=== PATIENT | male | born 1940 | race African-American/Black ===

== ENCOUNTER 2016-12-20 11:32 | Outpatient (CLI) ==
[2016-12-20 13:38] LABS: BASOPHILS # (AUTO) 0.1 K/uL (0-0.2); EOSINOPHILS # (AUTO) 0.2 K/ul (0.0-0.7); EOSINOPHILS % (AUTO) 2.1 % (0.0-7.0); HEMATOCRIT 46.1 % (42.0-52.0); HEMOGLOBIN 14.4 g/dl (14.0-18.0); IMMATURE GRANULOCYTE % (AUTO) 0.1 % (0.0-5.0); LYMPHOCYTES # (AUTO) 2.4 K/uL (0.60-3.4); LYMPHOCYTES % (AUTO) 34.7 (10.0-50.0); MEAN CORPUSCULAR HGB CONC 31.2 (31.8-35.4); MEAN CORPUSCULAR VOLUME 92.8 fl (80.0-94.0); MONOCYTES # (AUTO) 0.6 K/uL (0.4-2.0); MONOCYTES % (AUTO) 8.8 (0-10); NEUTROPHILS # (AUTO) 3.7 K/ul (2.0-6.9); NEUTROPHILS % (AUTO) 53.3; PLATELET COUNT 179 10^3/uL (140-440); RED BLOOD COUNT 4.97 10^6/ul (4.70-6.10); WHITE BLOOD COUNT 7.03 K/ul (4.2-10.2)
[2016-12-20 13:40] LABS: BILIRUBIN,URINE Negative (NEGATIVE); KETONES,URINE Negative (NEGATIVE); LEUKOCYTE ESTERASE ,URINE Negative (NEGATIVE); NITRITE,URINE Negative (NEGATIVE); PH,URINE 6.5 (5-9); PROTEIN,URINE 2+ (NEGATIVE); URINE, BLOOD Trace-lysed (NEGATIVE)
[2016-12-20 13:50] LABS: ADD URINE MICROSCOPIC YES
[2016-12-20 14:05] LABS: ALBUMIN 3.4 g/dL (3.4-5.0); ALBUMIN/GLOBULIN RATIO 0.81; BILIRUBIN,TOTAL 0.48 mg/dL (0.00-1.20); BUN/CREATININE RATIO 24.15; CALCIUM 9.4 mg/dL (8.2-10.2); CHOL/HDL RATIO 3.4 (4.5-6.4); CREATININE 1.78 mg/dL (0.60-1.10); TOTAL PROTEIN 7.6 g/dL (5.8-8.1)
== END 2016-12-20 11:33 | disposition home or self-care (01) ==
LOC: LAB 11:32
PROVIDERS: ATTEND General Practice
DX: I50.9 Heart failure, unspecified (principal); E10.9 Type 1 diabetes mellitus without complications; E78.5 Hyperlipidemia, unspecified; E03.9 Hypothyroidism, unspecified; I10 Essential (primary) hypertension; Z79.899 Other long term (current) drug therapy
CPT/HCPCS: 36415; 80053; 80061; 81001; 83036; 85025

== ENCOUNTER 2016-12-27 10:06 | Outpatient (CLI) ==
[2016-12-29 07:15] LABS: C-PEPTIDE 2.1 ng/mL (1.1-4.4); INSULIN 16.6 uIU/mL (2.6-24.9)
[2016-12-30 07:10] LABS: GAD AUTOANTIBODY < 5.0 U/mL (0.0-5.0)
== END 2016-12-27 10:07 | disposition home or self-care (01) ==
LOC: LAB 10:06
PROVIDERS: ATTEND General Practice
DX: E10.9 Type 1 diabetes mellitus without complications (principal)
CPT/HCPCS: 36415; 83519; 83525; 84681

== ENCOUNTER 2016-12-31 11:13 | Inpatient (IN) | payer OTHER ==
[2016-12-31 12:19] VITALS: BMI 37.6
[2016-12-31 14:08] LABS: BILIRUBIN,URINE Negative (NEGATIVE); KETONES,URINE Negative (NEGATIVE); LEUKOCYTE ESTERASE ,URINE Negative (NEGATIVE); NITRITE,URINE Negative (NEGATIVE); PROTEIN,URINE 2+ (NEGATIVE); URINE, BLOOD 1+ (NEGATIVE)
[2016-12-31 14:12] LABS: ADD URINE MICROSCOPIC YES
[2016-12-31 14:17] LABS: BASOPHILS # (AUTO) 0.1 K/uL (0-0.2); BASOPHILS % (AUTO) 0.9 % (0.0-3.0); EOSINOPHILS # (AUTO) 0.2 K/ul (0.0-0.7); EOSINOPHILS % (AUTO) 2.9 % (0.0-7.0); HEMATOCRIT 43.8 % (42.0-52.0); HEMOGLOBIN 13.5 g/dl (14.0-18.0); IMMATURE GRANULOCYTE % (AUTO) 0.2 % (0.0-5.0); LYMPHOCYTES # (AUTO) 1.6 K/uL (0.60-3.4); MEAN CORPUSCULAR HEMOGLOBIN 28.8 pg (27.0-31.0); MEAN CORPUSCULAR HGB CONC 30.8 (31.8-35.4); MEAN CORPUSCULAR VOLUME 93.6 fl (80.0-94.0); MONOCYTES # (AUTO) 0.9 K/uL (0.4-2.0); MONOCYTES % (AUTO) 15.2 (0-10); NEUTROPHILS # (AUTO) 3.1 K/ul (2.0-6.9); NEUTROPHILS % (AUTO) 53.8; PLATELET COUNT 130 10^3/uL (140-440); RED BLOOD COUNT 4.68 10^6/ul (4.70-6.10); WHITE BLOOD COUNT 5.78 K/ul (4.2-10.2)
[2016-12-31] MEDS ORDERED: COLACE PO PRN (14:22)
[2016-12-31 14:26] LABS: PROTHROMBIN TIME 17.7 SEC (9.3-11.0)
[2016-12-31 14:29] LABS: ABG PH 7.362 (7.35-7.45)
[2016-12-31 14:30] LABS: ABG PCO2 63.1 mmHg (35-45)
[2016-12-31] MEDS ORDERED: NITROSTAT SL PRN (14:30)
[2016-12-31 14:31] LABS: ABG BASE EXCESS 10 (-2.0-2.0); ABG HCO3 35.9 (22.0-26.0); ABG TCO2 38 (22.0-28.0)
[2016-12-31 14:45] LABS: ALBUMIN 3.2 g/dL (3.4-5.0); ALBUMIN/GLOBULIN RATIO 0.78; ANION GAP 11.4; BILIRUBIN,TOTAL 0.44 mg/dL (0.00-1.20); BUN/CREATININE RATIO 23.2; CALCIUM 8.9 mg/dL (8.2-10.2); CREATININE 1.81 mg/dL (0.60-1.10); POTASSIUM 4.4 mmol/L (3.5-5.1); TOTAL PROTEIN 7.3 g/dL (5.8-8.1)
[2016-12-31] MEDS ORDERED: XOPENEX 0.63 MG NEB STA (15:20)
--- NOTE | 2016-12-31 15:31 | DI ---
EXAM: CHEST FRONTAL AND LATERAL VIEWS HISTORY: Cough, shortness of breath. COMPARISON: 08/27/2015 FINDINGS: Mild cardiomegaly is stable. There is at least mild aortic atherosclerosis. Sternotomy wires are again noted. Left port catheter is unchanged ending over the superior vena cava. No cons olidated pneumonia, active congestive heart failure, pneumothorax or visible pleural fluid. IMPRESSION: No definite acute cardiopulmonary process identified.
[2016-12-31] MEDS: SOLU-CORTEF 250 MG IVP SCH ×2 (16:34→21:22)
[2016-12-31] MEDS: ASPIRIN EC PO SCH (16:35)
[2016-12-31] MEDS: BUMEX PO SCH (16:35)
[2016-12-31] MEDS: COUMADIN PO SCH (16:35)
[2016-12-31] MEDS: POTASSIUM CHLORIDE 20 MEQ VIAL-ADDITIVE ONLY 20 MEQ, INFUVITE ADULT 10 ML in SODIUM CHL... IV SCH (16:35)
[2016-12-31] MEDS ORDERED: HUMULIN R SUBCUT PRN (17:41)
[2016-12-31] MEDS: COMBIVENT RESPIMAT INHAL SPRAY IH SCH (18:49)
[2016-12-31] MEDS ORDERED: IPRATROPIUM IH SCH (21:00)
[2016-12-31] MEDS ORDERED: ALBUTEROL SULFATE IH SCH (21:00)
[2016-12-31] MEDS ORDERED: COMBIVENT RESPIMAT INHAL SPRAY IH SCH (21:00)
[2016-12-31] MEDS ORDERED: BETAPACE PO SCH (21:00)
[2016-12-31] MEDS ORDERED: [UNRECOGNIZED DRUG - OTHER] IH SCH (21:00)
[2016-12-31] MEDS: LANTUS SUBCUT SCH (21:34)
[2017-01-01] MEDS: POTASSIUM CHLORIDE 20 MEQ VIAL-ADDITIVE ONLY 20 MEQ, INFUVITE ADULT 10 ML in SODIUM CHL... IV SCH (04:22)
[2017-01-01] MEDS: BUMEX PO SCH ×2 (06:02→16:27)
[2017-01-01] MEDS: SYNTHROID PO SCH (06:02)
[2017-01-01] MEDS: COMBIVENT RESPIMAT INHAL SPRAY IH SCH ×4 (06:20→18:02)
[2017-01-01 07:22] LABS: BASOPHILS % (AUTO) 0.2 % (0.0-3.0); HEMOGLOBIN 13.6 g/dl (14.0-18.0); IMMATURE GRANULOCYTE % (AUTO) 0.2 % (0.0-5.0); LYMPHOCYTES % (AUTO) 19.6 (10.0-50.0); MEAN CORPUSCULAR HEMOGLOBIN 28.2 pg (27.0-31.0); MEAN CORPUSCULAR HGB CONC 30.9 (31.8-35.4); MEAN CORPUSCULAR VOLUME 91.3 fl (80.0-94.0); MONOCYTES # (AUTO) 0.3 K/uL (0.4-2.0); NEUTROPHILS # (AUTO) 3.9 K/ul (2.0-6.9); PLATELET COUNT 144 10^3/uL (140-440); RED BLOOD COUNT 4.82 10^6/ul (4.70-6.10); WHITE BLOOD COUNT 5.15 K/ul (4.2-10.2)
[2017-01-01 07:47] LABS: ALBUMIN/GLOBULIN RATIO 0.67; ANION GAP 11.9; BILIRUBIN,TOTAL 0.38 mg/dL (0.00-1.20); BUN/CREATININE RATIO 27.95; CALCIUM 8.6 mg/dL (8.2-10.2); CREATININE 1.61 mg/dL (0.60-1.10); POTASSIUM 4.9 mmol/L (3.5-5.1); TOTAL PROTEIN 7.5 g/dL (5.8-8.1)
[2017-01-01] MEDS: BETAPACE PO SCH ×2 (09:01→20:42)
[2017-01-01] MEDS: PRAVACHOL PO SCH (09:02)
[2017-01-01] MEDS: COZAAR PO SCH (09:02)
[2017-01-01] MEDS: ZYLOPRIM PO SCH (09:02)
--- NOTE | 2017-01-01 10:21 | CT ---
Exam: CT of the chest without contrast History: Shortness of breath Technique: [address] of the chest without intravascular contrast FINDINGS: Lung windows show bilateral patchy consolidative opacities multilobar. Nodular area in t he right lung base measures 1.8 x 1.0 cm. No pleural fluid. Atherosclerotic calcification of the a rom and coronary arteries. Possible cardiomegaly and heart chamber dilation. No pathologic lymph node enlargement. Prior median sternotomy. Right chest wall Port-A-Cath. No acute findings of the upper abdomen. Impression: 1. Bilateral consolidative opacities favoring pneumonia. 2. Indeterminate nodule versus round consolidation of the right lower lobe. Follow-up recommended after treatment and convalescence.
[2017-01-01] MEDS: SOLU-CORTEF 250 MG IVP SCH ×2 (10:41→20:42)
[2017-01-01] MEDS: HUMULIN R SUBCUT PRN ×2 (11:11→17:13)
[2017-01-01] MEDS: ZYVOX 600 MG in PREMIX 300 ML WATER 1 BAG IV SCH ×2 (11:42→20:40)
[2017-01-01] MEDS: COUMADIN PO SCH (16:27)
[2017-01-01] MEDS: ASPIRIN EC PO SCH (16:29)
[2017-01-01] MEDS ORDERED: ZYVOX 600 MG/300 ML BAG IV ONE (20:24)
[2017-01-01] MEDS: LANTUS SUBCUT SCH (20:41)
[2017-01-02] MEDS: COMBIVENT RESPIMAT INHAL SPRAY IH SCH ×4 (00:44→17:32)
[2017-01-02 05:03] LABS: PROTHROMBIN TIME 17.3 SEC (9.3-11.0)
[2017-01-02 05:33] LABS: EOSINOPHILS % (AUTO) 0.1 % (0.0-7.0); HEMATOCRIT 42.8 % (42.0-52.0); HEMOGLOBIN 13.6 g/dl (14.0-18.0); IMMATURE GRANULOCYTE % (AUTO) 0.3 % (0.0-5.0); LYMPHOCYTES # (AUTO) 1.3 K/uL (0.60-3.4); LYMPHOCYTES % (AUTO) 11.6 (10.0-50.0); MEAN CORPUSCULAR HGB CONC 31.8 (31.8-35.4); MEAN CORPUSCULAR VOLUME 91.3 fl (80.0-94.0); MONOCYTES # (AUTO) 0.6 K/uL (0.4-2.0); MONOCYTES % (AUTO) 5.4 (0-10); NEUTROPHILS % (AUTO) 82.6; PLATELET COUNT 148 10^3/uL (140-440); RED BLOOD COUNT 4.69 10^6/ul (4.70-6.10)
[2017-01-02 05:35] LABS: WHITE BLOOD COUNT 10.87 K/ul (4.2-10.2)
[2017-01-02 05:38] LABS: ALBUMIN 2.9 g/dL (3.4-5.0); ALBUMIN/GLOBULIN RATIO 0.76; ANION GAP 11.5; BILIRUBIN,TOTAL 0.32 mg/dL (0.00-1.20); BUN/CREATININE RATIO 29.21; CALCIUM 8.9 mg/dL (8.2-10.2); CREATININE 1.78 mg/dL (0.60-1.10); POTASSIUM 4.5 mmol/L (3.5-5.1); TOTAL PROTEIN 6.7 g/dL (5.8-8.1)
[2017-01-02] MEDS: SYNTHROID PO SCH (06:23)
[2017-01-02] MEDS: HUMULIN R SUBCUT PRN ×3 (06:23→17:18)
[2017-01-02] MEDS: BUMEX PO SCH ×2 (06:23→17:18)
[2017-01-02] MEDS: BETAPACE PO SCH ×2 (08:10→20:56)
[2017-01-02] MEDS: PRAVACHOL PO SCH (08:12)
[2017-01-02] MEDS: COZAAR PO SCH (08:12)
[2017-01-02] MEDS: SOLU-CORTEF 250 MG IVP SCH (08:13)
[2017-01-02] MEDS: ZYLOPRIM PO SCH (08:13)
[2017-01-02] MEDS: ZYVOX 600 MG in PREMIX 300 ML WATER 1 BAG IV SCH ×2 (09:08→21:03)
[2017-01-02] MEDS: ASPIRIN EC PO SCH (17:18)
[2017-01-02] MEDS: COUMADIN PO SCH (17:18)
[2017-01-02] MEDS: LANTUS SUBCUT SCH (20:55)
[2017-01-02] MEDS ORDERED: ZYVOX 600 MG/300 ML BAG IV ONE (21:02)
[2017-01-03] MEDS: COMBIVENT RESPIMAT INHAL SPRAY IH SCH ×5 (01:02→23:59)
[2017-01-03 04:57] LABS: BASOPHILS % (AUTO) 0.1 % (0.0-3.0); HEMATOCRIT 41.7 % (42.0-52.0); HEMOGLOBIN 13.1 g/dl (14.0-18.0); IMMATURE GRANULOCYTE % (AUTO) 0.3 % (0.0-5.0); LYMPHOCYTES # (AUTO) 2.3 K/uL (0.60-3.4); LYMPHOCYTES % (AUTO) 17.7 (10.0-50.0); MEAN CORPUSCULAR HEMOGLOBIN 28.7 pg (27.0-31.0); MEAN CORPUSCULAR HGB CONC 31.4 (31.8-35.4); MEAN CORPUSCULAR VOLUME 91.2 fl (80.0-94.0); MONOCYTES # (AUTO) 0.9 K/uL (0.4-2.0); MONOCYTES % (AUTO) 6.7 (0-10); NEUTROPHILS # (AUTO) 9.7 K/ul (2.0-6.9); NEUTROPHILS % (AUTO) 75.2; PLATELET COUNT 149 10^3/uL (140-440); RED BLOOD COUNT 4.57 10^6/ul (4.70-6.10); WHITE BLOOD COUNT 12.85 K/ul (4.2-10.2)
[2017-01-03 05:10] LABS: PROTHROMBIN TIME 24.6 SEC (9.3-11.0)
[2017-01-03 05:18] LABS: ALBUMIN 2.8 g/dL (3.4-5.0); ALBUMIN/GLOBULIN RATIO 0.8; ANION GAP 12.1; BILIRUBIN,TOTAL 0.33 mg/dL (0.00-1.20); BUN/CREATININE RATIO 36.91; CALCIUM 8.7 mg/dL (8.2-10.2); CREATININE 1.49 mg/dL (0.60-1.10); POTASSIUM 4.1 mmol/L (3.5-5.1); TOTAL PROTEIN 6.3 g/dL (5.8-8.1)
[2017-01-03] MEDS: BUMEX PO SCH ×2 (05:39→16:43)
[2017-01-03] MEDS: SYNTHROID PO SCH (05:39)
[2017-01-03] MEDS: HUMULIN R SUBCUT PRN ×3 (06:19→17:39)
[2017-01-03] MEDS: ZYVOX 600 MG in PREMIX 300 ML WATER 1 BAG IV SCH ×2 (08:00→21:08)
[2017-01-03] MEDS: COZAAR PO SCH (08:00)
[2017-01-03] MEDS: PRAVACHOL PO SCH (08:01)
[2017-01-03] MEDS: BETAPACE PO SCH ×2 (08:01→21:17)
[2017-01-03] MEDS: ZYLOPRIM PO SCH (08:02)
[2017-01-03] MEDS ORDERED: DRISDOL PO SCH (09:00)
[2017-01-03] MEDS ORDERED: MUCINEX PO SCH (09:30)
--- NOTE | 2017-01-03 09:31 | ECHO2D ---
Date of Exam: 01/01/17 Ordering Physician: Charlene PAUL Reason for Echo: ELEVATED BLOOD PRESSURE, CARDIOMEGALY, CHF M-Mode Normal Adult Results LV Dimensions Normal Adult Results AoV Opening excursions >1.6 >1.6 LVEDD-base- 3.5-5.8 6.0 Ao root dimensions 2.0-3.7 4.0 LVESD-base- 3.1-4.6 L. Atrium dimensions 1.9-3.8 4.7 Post. Wall thickness 0.8-1.1 1.5 IV septum (thickness) 0.7-1.2 1.5 Post. Wall excursion 0.72-1.3 0.4 Septal motion 0.4 Systolic motion R. Ventricular cavity 1.5-2.0 NORMAL LVEF 60% 30% Paradoxical septal wall motion NORMAL 2-D : VALVES--NORMAL/HYPOKINETIC LEFT VENTRICLE, ENLARGED LEFT ATRIAL AND LEFT VENTRICLE CAVITIES, NO EFFUSION, NO THROMBUS M-MODE: MV: NORMAL AV: NORMAL TV: NORMAL PV: CHAMBER SIZE: ENLARGED LEFT ATRIAL AND LEFT VENTRICLE CAVITIES WALL MOTION: HYPOKINETIC LEFT VENTRICLE PERICARDIUM: NORMAL INTERPRETATION: 1. MODERATE LEFT VENTRICULAR HYPERTROPHY 2. ENLARGED LEFT ATRIAL AND LEFT VENTRICLE CAVITIES 3. DILATED AORTIC ROOT 4. HYPOKINETIC LEFT VENTRICLE WITH EJECTION FRACTION 30% MTDD
[2017-01-03] MEDS: MUCINEX PO SCH ×2 (09:34→21:17)
--- NOTE | 2017-01-03 13:07 | HP ---
CHIEF COMPLAINT: Muscular aches, not feeling well, cough and shortness of breath. SOURCE OF HISTORY: The patient HISTORY OF PRESENT ILLNESS: This patient is know to have chronic obstructive lung disease with home oxygen. He noted last Tuesday, 5 days to presentation to the office that he was experiencing generalized muscular aches with cough. Achy and coughing persisted with increasing weakness and increasing shortness of breath. The patient did not have any significant temperature rise. The patient at time of examination at the office was noted to be tachypneic in spite of the 2 liters of oxygen. He also has wheezing in both lung blanco anteriorly and posteriorly. Breath are markedly diminished. Heart is normal sinus rhythm. The patient was then advised admission to the hospital because of the increasing shortness of breath. PAST PERSONAL HISTORY: The patient had cataract removal, two open heart surgeries in 2011 and 5 coronary stents, umbilical hernia repair, congenital kidney defect. Penile implant, benign prostatic hypertrophy, left knee replacement 2008, was exposed smoking when he was a child but never did smoke, denies any alcoholic use. The patient has lymphoma and was given chemotherapy in 2004. He is being followed by a urologist Dr. López. He had a colonoscopy with Dr. Braxton. He had admitted to [facility] [place] two times recently probably from increasing shortness of breath. I will try to obtain those records. FAMILY HISTORY: Father had emphysema Mother had bone cancer as well as diabetes. SOCIAL HISTORY: The patient is for the second time, his previous several years ago. He does not smoke any cigarettes and no alcoholic beverages. MEDICATIONS: Warfarin 5mg PO daily Aspirin 81mg PO daily Levothyroxine 100mcg daily Allopurinol 100mg PO daily Colace 100mg twice a day Bumex 1mg tablet twice a day Combivent Respimat one inhalation twice a day Losartan 50mg daily Sotalol 40mg PO twice a day Nitroglycerin 0.4mg PRN sublingually Insulin Isophane 44 unit SUBCUT daily Human Insulin Isophane Novolin N 33 units at bedtime Vitamin D 50,000 units weekly ALLERGIES: Keflex Potassium Chloride Cipro REVIEW OF SYSTEMS: CONSTITUTIONAL: The patient has no fever or chills but fatigue. No feeling well. FURNITURE PACKER: No headaches. No ataxia, No loss of consciousness. VISUAL: Denies any blurred vision, double or loss of vision. AUDITORY: Hearing is decreased but no pain or drainage and no tinnitus. RESPIRATORY: The patient has cough and some what purulent sputum, persistent and increasing. No hemoptysis CARDIOVASCULAR: No chest pain or oppression GASTROINTESTINAL: No significant appetite changes. GENITOURINARY: Denies any pain on urination and no significant urgency INTEGUMENT: No rash or pleuritis ENDOCRINE: The patient is diabetic and is using insulin NPH. Testing with the diabetes showed the plasma C-Peptid Level within normal, BHARATHI 65 autoantibody is negative and the insulin is 16. The insulin had been discontinued prior to this testing. It was felt like this patient still is type 2 diabetes and weight reduction is needed and maybe this patient will be tried on Trulicity later on after this acute episode or increasing shortness of breath. HEMATOLOGIC: No history of prolonged bleeding. The patient is on Coumadin PSYCHIATRIC: Affect is normal. PHYSICAL EXAMINATION: GENERAL: The patient is an 78 year old black male admitted to the hospital because of increasing shortness of breath with cough and muscular aches. VITAL SIGNS: Temperature 98.6, pulse 58, blood pressure 122/80 left and 120/78 right, respiratory rate 16 and oxygen saturation 90 at 2 liters. 5'9" and 255 pounds. HEAD: Unremarkable FACE: Symmetrical and equal with no facial weakness. Palpation under pressure in the frontal maxillary sinus areas revealed no pain or tenderness. EYES: Pupils equal/reactive to light. About 3mm in size. Conjunctivae not pale. Sclerae not icteric. MOUTH: Unremarkable THROAT: No inflammation, tumors or exudate. NECK: No masses. No bruit. No tenderness. No rigidity. CHEST: Symmetrical and equal with acceptable expansion with scar median sternotomy LUNGS: Breaths sounds are markedly diminished and has expiratory and inspiratory wheezing. No descendible rales noted. The wheezing is also appreciated interiorly. HEART: Audible and regular with good tones. No murmurs. ABDOMEN: Protuberant . No remarkable tenderness. No guarding. Bowel sounds are active. LOWER EXTREMITIES: The patient is using support hose. The limits the swelling UPPER EXTREMITIES: Symmetrical and equal ASSESSMENT: 1. Acute exacerbation of acute bronchitis 2. Probably viral syndrome 3. Exacerbation of respiratory failure 4. Coronary artery disease, status post bypass 5. Coronary artery disease, status post stent application x5 6. Markedly elevated BMI, 37.7 7. Diabetes Mellitus probably 1.5 8. Erectile dysfunction with prosthesis 9. History of prostatic hypertrophy followed by a urologist Dr. López 10.History of lymphoma, treated PROGNOSIS: Guarded. MTDD
[2017-01-03] MEDS: ASPIRIN EC PO SCH (16:43)
[2017-01-03] MEDS: COUMADIN PO SCH (16:44)
[2017-01-03] MEDS: LANTUS SUBCUT SCH (21:19)
[2017-01-04 05:14] LABS: BASOPHILS % (AUTO) 0.2 % (0.0-3.0); EOSINOPHILS # (AUTO) 0.1 K/ul (0.0-0.7); EOSINOPHILS % (AUTO) 0.9 % (0.0-7.0); HEMATOCRIT 45.9 % (42.0-52.0); HEMOGLOBIN 14.3 g/dl (14.0-18.0); IMMATURE GRANULOCYTE % (AUTO) 0.3 % (0.0-5.0); LYMPHOCYTES # (AUTO) 3.4 K/uL (0.60-3.4); LYMPHOCYTES % (AUTO) 37.5 (10.0-50.0); MEAN CORPUSCULAR HEMOGLOBIN 28.7 pg (27.0-31.0); MEAN CORPUSCULAR HGB CONC 31.2 (31.8-35.4); MONOCYTES # (AUTO) 0.7 K/uL (0.4-2.0); MONOCYTES % (AUTO) 7.5 (0-10); NEUTROPHILS # (AUTO) 4.8 K/ul (2.0-6.9); NEUTROPHILS % (AUTO) 53.6; PLATELET COUNT 162 10^3/uL (140-440); RED BLOOD COUNT 4.99 10^6/ul (4.70-6.10); WHITE BLOOD COUNT 9.04 K/ul (4.2-10.2)
[2017-01-04 05:32] LABS: PROTHROMBIN TIME 38.2 SEC (9.3-11.0)
[2017-01-04] MEDS: SYNTHROID PO SCH (05:33)
[2017-01-04] MEDS: BUMEX PO SCH ×2 (05:33→16:56)
[2017-01-04] MEDS: COMBIVENT RESPIMAT INHAL SPRAY IH SCH ×3 (05:33→18:12)
[2017-01-04 05:36] LABS: ALBUMIN 2.9 g/dL (3.4-5.0); ALBUMIN/GLOBULIN RATIO 0.74; BILIRUBIN,TOTAL 0.45 mg/dL (0.00-1.20); BUN/CREATININE RATIO 32.67; CALCIUM 8.9 mg/dL (8.2-10.2); CREATININE 1.53 mg/dL (0.60-1.10); TOTAL PROTEIN 6.8 g/dL (5.8-8.1)
[2017-01-04] MEDS: ZYVOX 600 MG in PREMIX 300 ML WATER 1 BAG IV SCH ×2 (08:31→20:28)
[2017-01-04] MEDS: MUCINEX PO SCH ×2 (08:32→20:31)
[2017-01-04] MEDS: COZAAR PO SCH (08:33)
[2017-01-04] MEDS: BETAPACE PO SCH ×2 (08:33→20:32)
[2017-01-04] MEDS: ZYLOPRIM PO SCH (08:33)
[2017-01-04] MEDS: PRAVACHOL PO SCH (08:33)
--- NOTE | 2017-01-04 09:34 | PN ---
DATE OF VISIT: 01/01/17 SUBJECTIVE: 76 year old black male was hospitalized yesterday because of increasing shortness of breath with hypercarbia. The patient had problems with aching since Tuesday, 5 days prior to admission with cough. He denies any significant fever. He claims to have been feeling bad since that time. The patient at the time of my examination at the office had wheezing both expiratory and inspiratory as well as anteriorly. Because of his respiratory distress this was patient was admitted to the hospital. The patient today is alert and feeling better. He claims that he is feeling. He has no tachypnea. VITAL SIGNS: Temperature 97.8, pulse 82, blood pressure 154/78, respiratory rate 20 and oxygen saturation 96% at 2 liters. The wheezing is almost resolved both anteriorly and posteriorly but the patient now has rales audible on the left midlung field and lower portion. Heart is audible and regular with good tones. The previous chest x-ray showed no acute processes. A CT scan ordered today showed bilateral consolidation most likely pneumonia, determinate nodule versus consolidation right lower lobe. Followup recommended after treatment. It measures 1.8x1.0. This patient will treated with Zyvox 600mg intervenously twice a day. Cardiological consultation is requested and Dr. Camp had been notified. I also advised the patient that I will be going out of town and I would not see him tomorrow and mostly Dr. Camp would see him and I will be back Tuesday late about Midnight and the patient did understand. The Solu-Cortef will be reduced to 125 twice a day instead of 250. The Bumex should be also given on an empty stomach, notation will be made. This patient was on Sotalol 40mg twice a day. Sotalol is non-selective and the patient had been wheezing. The Sotalol dose last night was discontinued and now decreased to 20mg twice a day. The patient's IV also will be discontinued MTDD
--- NOTE | 2017-01-04 10:56 | CONS ---
DATE OF SERVICE: 01/03/17 CONSULT FOLLOWUP SUBJECTIVE: The patient is a 76 year old black male hospitalized with bronchitis/ pneumonitis. The patient is sitting up in the chair eating breakfast feeling comfortable. REVIEW OF SYSTEMS: CONSTITUTIONAL: No night sweats. No fatigue, malaise, lethargy. No fever or chills. HEENT: Eyes: No visual changes. No eye pain. No eye discharge. ENT: No runny nose. No epistaxis. No sinus pain. No sore throat. No odynophagia. No ear pain. No congestion. RESPIRATORY: No cough, no congestion. No hemoptysis. CARDIOVASCULAR: No angina symptoms. No CHF symptoms. No atypical chest pain for CAD. No palpitations. No shortness of breath. GASTROINTESTINAL: No abdominal pain. No nausea or vomiting. No diarrhea or constipation. No hematemesis. No hematochezia. GENITOURINARY: No urgency. No frequency. No dysuria. No hematuria. No obstructive symptoms. No discharge. No pain. No significant abnormal bleeding. MUSCULOSKELETAL: No musculoskeletal pain. No joint swelling. No arthritis. NEUROLOGICAL: No headache. No neck pain. No syncope. No seizures. No dizziness. PSYCHIATRIC: Not anxious. No depression. No suicidal thoughts. No homicidal thoughts. SKIN: No rash. No lesions. No wounds. ENDOCRINE: No unexplained weight loss. No weight gain. HEMATOLOGIC/LYMPHATIC: No anemia. No purpura. No petechiae. No prolonged or excessive bleeding. No palpable lymph nodes. PHYSICAL EXAMINATION: GENERAL: The patient is oriented to time, place and person. VITAL SIGNS: Temperature 97, pulse 60, respiratory 15, blood pressure 140/70 and pulse ox 97% on room air. HEENT: Head normocephalic, atraumatic. Eyes: Extraocular muscles are intact. Pupils are equal, round and reactive to light and accommodation. Ears: No lesions. Nose appeared normal. Throat: No exudate or erythema. NECK: Supple. No JVD, no carotid bruit. No lymphadenopathy or thyromegaly. LUNGS: Decreased breath sounds but clear to auscultation. Percussion note normal. Chest symmetrical. HEART: S1, S2, no S3. No murmurs. No cyanosis or clubbing. No ascites. Pulses: Dorsalis pedis and posterior tibial pulses +1 to +2 both sides. ABDOMEN: Soft. Nontender. Bowel sounds active. No CVA tenderness. No mass felt. EXTREMITIES: No edema. Full range of motion of all extremities, equal. NEUROLOGIC: No focal deficit. Cranial nerves II through XII are grossly intact. No headache, no double vision or headache. SKIN: Not dry. Intact. Turgor - normal. LYMPHATIC: No palpable lymph nodes/no lymphedema. MUSCULOSKELETAL: Normal joints with no swelling. Muscle tone is normal. ASSESSMENT: 1. Pneumonitis/bronchitis seems to have resolved, the patient is on antibiotics and steroids 2. Congestive heart failure under control 3. Dilated cardiomyopathy, stable 4. Chronic kidney disease 5. Diabetes Mellitus RECOMMENDATIONS: 1. Cardiovascular status, stable 2. No further recommendation. 3. The patient is being followed by Dr. Ramos and was thinking about putting a fibrillator. 4. Counseling for congestive heart failure done. 5. The patient is advised to keep the legs up. 6. DASH diet discussed which would include low salt diet 7. Advised to weight himself daily. If he weight more than two pounds advised to take extra diarrhetic 8. BMI 38 which is almost like morbidly obese 9. Weight loss ADA diet discussed with the patient and the . CONDITION: Stable MTDD
--- NOTE | 2017-01-04 10:57 | PN ---
Tyler Resendiz was saw on consultation. The last day the patient was seen was . The first day was level 5 and the rest of them intermediate. MTDD
[2017-01-04] MEDS: HUMULIN R SUBCUT PRN ×2 (11:15→17:00)
--- NOTE | 2017-01-04 11:31 | CONS ---
DATE OF CONSULTATION: 01/01/17 REASON FOR CONSULTATION: Rising BNP with history of CHF. HISTORY OF PRESENT ILLNESS: 76 year old black male hospitalized on 12/31/16 from doctor office after was being seen with cough, congestion and bronchitis. On further investigation the patient has acute pneumonitis/bronchitis. Today the patient is feeling a lot better. The if present in the room. is good historian for the patient. The patient gives history of having coronary bypass surgery in 2004 with stents. He is being followed by Dr. Ramos for number of years. The last hospitalization was in [facility] in September for seven day and at that time he had a lot of swelling of his legs with shortness of breath. According to the a lot of fluid was taken out. The patient had twice shock treatment according to the meaning cardioversions. According to the the patient is being evaluated for defibrillator placement in the near future. REVIEW OF SYSTEMS: CONSTITUTIONAL: No night sweats. Weakness and fatigue. No fever or chills. HEENT: Eyes: No visual changes. No eye pain. No eye discharge. ENT: No runny nose. No epistaxis. No sinus pain. No sore throat. No odynophagia. No ear pain. No congestion. RESPIRATORY: Cough and congestion. No hemoptysis. Short of breath. CARDIOVASCULAR: No angina symptoms. No CHF symptoms. No atypical chest pain for CAD. No palpitations. Shortness of breath on exertion. No PND. No Orthopnea. GASTROINTESTINAL: No abdominal pain. No nausea or vomiting. No diarrhea or constipation. No hematemesis. No hematochezia. Appetite is improving. GENITOURINARY: No urgency. No frequency. No dysuria. No hematuria. No obstructive symptoms. No discharge. No pain. No significant abnormal bleeding. MUSCULOSKELETAL: No musculoskeletal pain. No joint swelling. NEUROLOGICAL: No headache. No neck pain. No syncope. No seizures. No dizziness. PSYCHIATRIC: Not anxious. No depression. No suicidal thoughts. No homicidal thoughts. SKIN: No rash. No lesions. No wounds. ENDOCRINE: No unexplained weight loss. No weight gain. HEMATOLOGIC/LYMPHATIC: No anemia. No purpura. No petechiae. No prolonged or excessive bleeding. No palpable lymph nodes. MEDICATIONS: Allopurinol 100mg PO daily Aspirin 81mg PO daily Levothyroxine 100mcg PO daily Coumadin 5mg PO daily Colace 100mg PO twice a day Bumex 1mg twice a day Ipratropium/Albuterol 4 grams inhalation twice a day Losartan 50mg PO daily Nitroglycerin 0.4mg PRN Sotalol 40mg PO twice a day Vitamin D 50,000 units daily NPH 33 units SUBCUT at bedtime and 44 units in the morning Coumadin 5mg PO QPM ALLERGIES: Keflex Klor-Con Cipro Potassium PAST MEDICAL HISTORY/PAST SURGICAL HISTORY: Coronary artery bypass surgery with history of stents Congestive heart failure BMI 37 with obesity Atrial Fibrillation Hypothyroidism Hypertension Diabetes Mellitus for number of years Gout Hernia surgery Penile implant Left knee replacement SOCIAL/PERSONAL/FAMILY HISTORY: The patient lives with his . Non-smoker and no alcohol abuse. Had worked in the [employer] with the dust. Does most of the activity of daily living. PHYSICAL EXAMINATION: GENERAL: The patient is oriented to time, place and person. The patient is not in distress. VITAL SIGNS: Temperature 98.6, pulse 62, respiratory rate 16, blood pressure 140 /70 and pulse ox 93%. HEENT: Head normocephalic, atraumatic. Eyes: Extraocular muscles are intact. Pupils are equal, round and reactive to light and accommodation. Ears: No lesions. Nose appeared normal. Throat: No exudate or erythema. NECK: Supple. No JVD, no carotid bruit. No lymphadenopathy or thyromegaly. PMI not palpable on auscultation. LUNGS: Clear to auscultation. Percussion note normal. Chest symmetrical. HEART: S1, S2, questionable S3. No murmurs. No cyanosis or clubbing. No ascites. Pulses: Dorsalis pedis and posterior tibial pulses trace to +1 bilaterally. ABDOMEN: Soft. Nontender. Bowel sounds active. No CVA tenderness. No mass felt. EXTREMITIES: No edema. Full range of motion of all extremities, equal. NEUROLOGIC: No focal deficit. Cranial nerves II through XII are grossly intact. No headache, no double vision or headache. SKIN: Not dry. Intact. Turgor - normal. LYMPHATIC: No palpable lymph nodes/no lymphedema. MUSCULOSKELETAL: Normal joints with no swelling. Muscle tone is normal. LABS: hgb 13.6, hct 44, WBC 5,100 normal differential, creatinine 1.6, BUN 45, potassium 4.9 and glucose 304.According to the the sugar has been up because of the steroids. ASSESSMENT: 1. Acute bronchitis/pneumonitis resolving on steroids and antibiotics 2. History of CHF 3. Coronary bypass surgery with history of stents 4. Chronic kidney disease 5. Diabetes Mellitus 6. Chronic lung disease with history of exposure to dust and coal particles. 7. Dyslipidemia 8. Hypertension 9. Gout 10.Status post knee replacement 11.Generalized osteoarthritis RECOMMENDATIONS: 1. Agreed with present management 2. The patient doesn't have much symptoms of bronchitis at present time. 3. He is on steroids. 4. Sliding scale agreed with steroid therapy 5. The patient is on Bumex 1mg twice a day and that seems to have controlled his CHF along with Cozaar 6. Monitor daily INR 7. CBC and CMP 8. T4 and TSH 9. Echocardiogram 2D-M mode to evaluate LV function which was done. The patient has LVH with dilated left ventricular cavity and dilated LA cavity. Ejection fraction is 30-35%. 10. The patient has EKG done which shows old anteroseptal and possibly inferior wall MT with possibility of LVH strain pattern 11. Once again, the patient has multiple medical problems. CONDITION: Stable for now. Will follow. Thanks for referral. HARMEET
--- NOTE | 2017-01-04 11:38 | PN ---
DATE OF VISIT: 12/31/16 This patient was seen about a half an hour ago. The patient claimed to be feeling better. I did inform him that the chest x-ray does not indicate any lung problems. His arterial blood gases, however are abnormal and I urge him to take several deep breaths several times during the hour. He seemed to retaining CO2. His wheezing is less compared to when I saw him at the office earlier. I reviewed him medications and this patient had been on Sotalol for some time. The patient had received his dose this morning and I discontinued the Sotalol at 4o twice a day and resume tomorrow at 20 twice a day. I would need to talk to a process controller who had initiated this medication and hopefully change it to maybe Atenolol who is more or less selective and has a better antiarrhythmic effect. He was given Solu-Cortef at 2:50 and will be given every 12 hours and the Combivent was increased to every 6 hours from every 12 hours. He also was given Xopenex nebulizer once. His BNP is elevated at 1220, but his renal function is decreased with a GFR of 44. His BUN is elevated. His chest x-ray does not indicate any abnormalities indicating congestive heart failure. His Procalcitonin is 0.05. His problems began as aching, generalized Tuesday, as well as cough and feeling tired. His shortness of breath had been progressive since then. Rapid A and B was negative at the office. Influenza A and B antibodies is requested. His BUN is 42, creatinine 1.81. Urinalysis with 2+ protein, specific gravity 1.010, urine blood 1+, microscopic RBC 0-2. EKG showed 1st degree AV block and the QT interval is less than 500. The patient is diabetic and had been receiving NPH Insulin. This patient will be given Lantus, as well as Humalog during this hospitalization. He will be given a basal bolus. The recent studies show that this patient's plasma C-peptide level is normal and the BHARATHI 65 autoantibody is negative and the fasting Insulin is still normal. This patient is still a Type II Diabetic and would most likely benefit from weight loss, as well as a GLP1. We will see how he does tomorrow. HARMEET
--- NOTE | 2017-01-04 11:51 | CONS ---
DATE OF SERVICE: 01/02/17 CONSULT FOLLOWUP SUBJECTIVE: 76 year old black male seen on consultation because of high BNP. The patient is being treated for bronchitis. The patient's condition has improved and he is sitting up in the chair comfortable and wants to go home. No distress. REVIEW OF SYSTEMS: CONSTITUTIONAL: No night sweats. No fatigue, malaise, lethargy. No fever or chills.Strength has improved. HEENT: Eyes: No visual changes. No eye pain. No eye discharge. ENT: No runny nose. No epistaxis. No sinus pain. No sore throat. No odynophagia. No ear pain. No congestion. RESPIRATORY: No cough, no congestion. No hemoptysis. CARDIOVASCULAR: No angina symptoms. No CHF symptoms. No atypical chest pain for CAD. No palpitations. No shortness of breath. No PND. No orthopnea. GASTROINTESTINAL: No abdominal pain. No nausea or vomiting. No diarrhea or constipation. No hematemesis. No hematochezia. Appetite has improved. GENITOURINARY: No urgency. No frequency. No dysuria. No hematuria. No obstructive symptoms. No discharge. No pain. No significant abnormal bleeding. MUSCULOSKELETAL: No musculoskeletal pain. No joint swelling. No arthritis. NEUROLOGICAL: No headache. No neck pain. No syncope. No seizures. No dizziness. PSYCHIATRIC: Not anxious. No depression. No suicidal thoughts. No homicidal thoughts. SKIN: No rash. No lesions. No wounds. ENDOCRINE: No unexplained weight loss. No weight gain. HEMATOLOGIC/LYMPHATIC: No anemia. No purpura. No petechiae. No prolonged or excessive bleeding. No palpable lymph nodes. PHYSICAL EXAMINATION: GENERAL: The patient is oriented to time, place and person. VITAL SIGNS: Temperature 96.4, pulse 60, respiratory rate 13, blood pressure 140 /70 and pulse ox 97%. HEENT: Head normocephalic, atraumatic. Eyes: Extraocular muscles are intact. Pupils are equal, round and reactive to light and accommodation. Ears: No lesions. Nose appeared normal. Throat: No exudate or erythema. NECK: Supple. No JVD, no carotid bruit. No lymphadenopathy or thyromegaly. LUNGS: Decreased breath sounds but clear to auscultation. Percussion note normal. Chest symmetrical. HEART: S1, S2, no S3. No murmurs. No cyanosis or clubbing. No ascites. Pulses: Dorsalis pedis and posterior tibial pulses +1 to +2 both sides. ABDOMEN: Soft. Nontender. Bowel sounds active. No CVA tenderness. No mass felt. EXTREMITIES: Trace edema. Full range of motion of all extremities, equal. NEUROLOGIC: No focal deficit. Cranial nerves II through XII are grossly intact. No headache, no double vision or headache. SKIN: Not dry. Intact. Turgor - normal. LYMPHATIC: No palpable lymph nodes/no lymphedema. MUSCULOSKELETAL: Normal joints with no swelling. Muscle tone is normal. LABS: Hgb 13.6, hct 42, WbC 10,000 normal differential, creatinine 1.7, BUn 52, potassium 4.5, BNP 19 on 01/01/17. ASSESSMENT: 1. Acute bronchitis/ pneumonitis could be viral but resolving 2. Congestive heart failure, under control 3. Dilated cardiomyopathy 4. Chronic kidney disease 5. Diabetes Mellitus 6. Hypertension 7. Dyslipidemia RECOMMENDATIONS: 1. Agreed with the present management 2. The patient is on Zyvox 3. Continue diarrhetic therapy 4. Unloading agent 5. The patient is being followed by Dr. Ramos CONDITION: Stable. [facility]
--- NOTE | 2017-01-04 14:17 | DI ---
EXAM: Chest two view, frontal and lateral views. HISTORY: Pneumonia. COMPARISON: CT 01/01/2017. FINDINGS: Right-sided chest port is present. Median sternotomy wires mediastinal surgical clips ag ain noted. Heart is enlarged. Perihilar bibasilar consolidation appear unchanged. No pleural effu nhan or pneumothorax identified. No acute osseous abnormality identified. IMPRESSION: Stable bilateral areas of consolidation. Follow-up is recommended. The right lower lobe nodule note d on CT is not identified by radiograph.
[2017-01-04 16:48] LABS: ABG PH 7.365 (7.35-7.45)
[2017-01-04 16:49] LABS: ABG PCO2 73.4 mmHg (35-45)
[2017-01-04 16:51] LABS: ABG BASE EXCESS 17 (-2.0-2.0); ABG HCO3 41.9 (22.0-26.0); ABG TCO2 44 (22.0-28.0)
[2017-01-04] MEDS: COUMADIN PO SCH (16:56)
[2017-01-04] MEDS: ASPIRIN EC PO SCH (16:56)
[2017-01-04] MEDS: LANTUS SUBCUT SCH (21:43)
[2017-01-05] MEDS: COMBIVENT RESPIMAT INHAL SPRAY IH SCH ×4 (00:09→18:13)
[2017-01-05 04:45] LABS: BASOPHILS % (AUTO) 0.5 % (0.0-3.0); EOSINOPHILS # (AUTO) 0.1 K/ul (0.0-0.7); EOSINOPHILS % (AUTO) 1.7 % (0.0-7.0); HEMATOCRIT 45.2 % (42.0-52.0); HEMOGLOBIN 13.9 g/dl (14.0-18.0); IMMATURE GRANULOCYTE % (AUTO) 0.5 % (0.0-5.0); LYMPHOCYTES # (AUTO) 3.1 K/uL (0.60-3.4); LYMPHOCYTES % (AUTO) 37.1 (10.0-50.0); MEAN CORPUSCULAR HEMOGLOBIN 28.3 pg (27.0-31.0); MEAN CORPUSCULAR HGB CONC 30.8 (31.8-35.4); MEAN CORPUSCULAR VOLUME 92.1 fl (80.0-94.0); MONOCYTES # (AUTO) 0.7 K/uL (0.4-2.0); MONOCYTES % (AUTO) 8.5 (0-10); NEUTROPHILS # (AUTO) 4.3 K/ul (2.0-6.9); NEUTROPHILS % (AUTO) 51.7; PLATELET COUNT 160 10^3/uL (140-440); RED BLOOD COUNT 4.91 10^6/ul (4.70-6.10); WHITE BLOOD COUNT 8.31 K/ul (4.2-10.2)
[2017-01-05 05:00] LABS: PROTHROMBIN TIME 37.5 SEC (9.3-11.0)
[2017-01-05 05:03] LABS: ALBUMIN 2.8 g/dL (3.4-5.0); ALBUMIN/GLOBULIN RATIO 0.76; ANION GAP 11.2; BILIRUBIN,TOTAL 0.44 mg/dL (0.00-1.20); BUN/CREATININE RATIO 27.85; CALCIUM 8.7 mg/dL (8.2-10.2); CREATININE 1.4 mg/dL (0.60-1.10); POTASSIUM 4.2 mmol/L (3.5-5.1); TOTAL PROTEIN 6.5 g/dL (5.8-8.1)
[2017-01-05] MEDS: SYNTHROID PO SCH (05:48)
[2017-01-05] MEDS: BUMEX PO SCH ×2 (05:49→17:03)
[2017-01-05] MEDS: BETAPACE PO SCH (08:44)
[2017-01-05] MEDS: COZAAR PO SCH (08:45)
[2017-01-05] MEDS: PRAVACHOL PO SCH (08:45)
[2017-01-05] MEDS: MUCINEX PO SCH (08:45)
[2017-01-05] MEDS: ZYLOPRIM PO SCH (08:45)
[2017-01-05] MEDS: ZYVOX 600 MG in PREMIX 300 ML WATER 1 BAG IV SCH (08:46)
[2017-01-05] MEDS: HUMULIN R SUBCUT PRN ×2 (11:32→17:25)
[2017-01-05] MEDS: ASPIRIN EC PO SCH (17:03)
[2017-01-05 17:32] VITALS: BP 152/85; TEMP 97.7
--- NOTE | 2017-02-16 13:46 | DS ---
PATIENT IDENTIFICATION: 76 year old black male admitted to the hospital because of increasing shortness of breath in the last 5 days. He had generalized muscular aches with cough with increasing weakness. He wasn't so sure whether he had ran a fever at home. He was tachypneic at the office and dyspneic in spite of 2 Liters of oxygen that he uses regularly. He had wheezing on both lung blanco anteriorly and posteriorly. The heart had normal sinus rhythm. HOSPITAL COURSE: The patient's initial chest x-ray 12/31/2016, the day of admission, was interpreted as no definte acute cardiopulmonary process identified. A chest CT on the following day, 01/01/2017, revealed bilateral consolidation favoring pneumonia. Indeterminate nodule versus consolidation of the right lower lobe. Follow up recommended after treatment and convalescence. The last chest x-ray on the day before discharge showed stable lateral areas of consolidation, follow up recommended. Nodule not identified on this chest x- ray. The patient's medications were continued, plus Solu-Cortef 250 mg every 12 hours. The patient was placed on Lantus and Humulin R for sliding scale. His Sotalol was reduced to 20 mg twice a day because of the wheezing that this patient had. Zyvox 600 mg IV piggyback every 12 hours, plus Mucinex 600 mg twice a day and was increased to 1200 mg twice a day. The wheezing was decreasing. The patient's oxygen saturation was improving. The Solu-Cortef was reduced to 125 mg every 12 hours instead of 250 mg and the Bumex was to be given on an empty stomach. The IV was discontinued, but the heparin lock was in place for administration of the IV medications. Dr. Camp had followed him in the next few days while I was gone. The patient's blood cultures were negative after five days. The sputum culture did grow normal eliza. The patient at the time of discharge was alert, feeling better and cheerful. VITAL SIGNS: At 5:31 p.m. showed a temperature of 97.7, pulse 52, blood pressure 152/85, respiratory rate 20, oxygen saturation 100 with 2 liters of nasal oxygen. LUNGS: Breath sounds are diminished in both sides and expiratory wheezing has resolved. He had bilateral basal rales. HEART: Audible with good tones. PLAN: 1. The patient is discharged today. 2. Prescription of Clindamycin 300 mg every 6 hours. 3. Mucinex 1200 mg plain every 12 hours. 4. Resume his previous medications. 5. He is advised to stop Clindamycin if her develops loose bowel movements three or more a day. 6. The patient is to see me 01/10/2017 at 10 a.m. 7. New prescriptions of Clindamycin and Mucinex. FINAL DIAGNOSES: 1. BILATERAL PNEUMONITIS 2. CHRONIC RESPIRATORY FAILURE WITH ACUTE EXACERBATION 3. CORONARY ARTERY DISEASE, STATUS POST BYPASS AND STENT APPLICATION 4. ELEVATED BMI 5. DIABETES MELLITUS 6. ERECTILE DYSFUNCTION WITH PROSTHESIS 7. HISTORY OF PROSTATIC HYPERTROPHY FOLLOWED BY DR. ANAYA 8. HISTORY OF LYMPHOMA 9. HISTORY OF HYPOTHYROIDISM, REPLACED 10. HISTORY OF GOUT, TREATED 11. HYPERTENSION, TREATED PROGNOSIS: Guarded. MTDD
== END 2017-01-05 18:35 | disposition home or self-care (01) | DRG 194 ==
LOC: UNDOADMIN 11:13 → MEDSURG A 11:13 → MEDSURG B 11:13
PROVIDERS: ADMIT General Practice; ATTEND General Practice
DX: J18.9 Pneumonia, unspecified organism (principal); J96.10 Chronic respiratory failure, unspecified whether with hypoxia or hypercapnia; I42.0 Dilated cardiomyopathy; I25.10 Atherosclerotic heart disease of native coronary artery without angina pectoris; I51.7 Cardiomegaly; E11.9 Type 2 diabetes mellitus without complications; R06.02 Shortness of breath; R79.89 Other specified abnormal findings of blood chemistry; R91.1 Solitary pulmonary nodule; J44.9 Chronic obstructive pulmonary disease, unspecified; I12.9 Hypertensive chronic kidney disease with stage 1 through stage 4 chronic kidney disease, or unspecified chronic kidney disease; N18.9 Chronic kidney disease, unspecified; E11.22 Type 2 diabetes mellitus with diabetic chronic kidney disease; E78.5 Hyperlipidemia, unspecified; E03.9 Hypothyroidism, unspecified; R63.8 Other symptoms and signs concerning food and fluid intake; I25.2 Old myocardial infarction; M1A.9XX0 Chronic gout, unspecified, without tophus (tophi); Z57.2 Occupational exposure to dust; Z95.1 Presence of aortocoronary bypass graft; Z95.5 Presence of coronary angioplasty implant and graft; Z87.448 Personal history of other diseases of urinary system; Z79.4 Long term (current) use of insulin; Z79.01 Long term (current) use of anticoagulants; Z79.899 Other long term (current) drug therapy
CPT/HCPCS: 36415; 80053; 81001; 82803; 82962; 83036; 83880; 84145; 84439; 84443; 85025; 85610; 86710; 87040; 87070; 93005; 93010; 94640

== ENCOUNTER 2016-12-31 12:40 | Outpatient (CLI) | payer OTHER ==
[2016-12-31 12:19] VITALS: BMI 37.6
[2016-12-31 12:53] LABS: FLU INTERNAL QC INTERNAL QC VALID; RAPID FLU A NEGATIVE (NEGATIVE); RAPID FLU B NEGATIVE (NEGATIVE)
== END 2016-12-31 12:41 | disposition home or self-care (01) ==
LOC: LAB 12:40
PROVIDERS: ATTEND General Practice
DX: R05 Cough (principal); R52 Pain, unspecified
CPT/HCPCS: 87804

== ENCOUNTER 2017-01-06 13:52 | Outpatient (CLI) | payer OTHER | END 2017-01-06 13:53 | disposition home or self-care (01) | LOC: LAB 13:52 | PROVIDERS: ATTEND General Practice | DX: Z51.81 Encounter for therapeutic drug level monitoring (principal); Z79.01 Long term (current) use of anticoagulants ==

== ENCOUNTER 2017-01-19 11:47 | Outpatient (CLI) | payer OTHER ==
[2017-01-19 12:42] LABS: BASOPHILS # (AUTO) 0.1 K/uL (0-0.2); BASOPHILS % (AUTO) 0.8 % (0.0-3.0); EOSINOPHILS # (AUTO) 0.1 K/ul (0.0-0.7); EOSINOPHILS % (AUTO) 1.6 % (0.0-7.0); HEMATOCRIT 41.2 % (42.0-52.0); HEMOGLOBIN 12.6 g/dl (14.0-18.0); IMMATURE GRANULOCYTE % (AUTO) 0.3 % (0.0-5.0); LYMPHOCYTES # (AUTO) 1.9 K/uL (0.60-3.4); LYMPHOCYTES % (AUTO) 21.5 (10.0-50.0); MEAN CORPUSCULAR HEMOGLOBIN 28.4 pg (27.0-31.0); MEAN CORPUSCULAR HGB CONC 30.6 (31.8-35.4); MEAN CORPUSCULAR VOLUME 92.8 fl (80.0-94.0); MONOCYTES # (AUTO) 0.8 K/uL (0.4-2.0); MONOCYTES % (AUTO) 9.2 (0-10); NEUTROPHILS % (AUTO) 66.6; PLATELET COUNT 364 10^3/uL (140-440); RED BLOOD COUNT 4.44 10^6/ul (4.70-6.10); WHITE BLOOD COUNT 9.03 K/ul (4.2-10.2)
[2017-01-19 12:45] LABS: BILIRUBIN,URINE Negative (NEGATIVE); KETONES,URINE Negative (NEGATIVE); LEUKOCYTE ESTERASE ,URINE Negative (NEGATIVE); NITRITE,URINE Negative (NEGATIVE); PH,URINE 5.5 (5-9); PROTEIN,URINE Negative (NEGATIVE); URINE, BLOOD Trace-intact (NEGATIVE)
[2017-01-19 12:50] LABS: ADD URINE MICROSCOPIC YES
[2017-01-19 13:06] LABS: ALBUMIN 2.7 g/dL (3.4-5.0); ALBUMIN/GLOBULIN RATIO 0.52; BILIRUBIN,TOTAL 0.55 mg/dL (0.00-1.20); BUN/CREATININE RATIO 42.5; CALCIUM 9.9 mg/dL (8.2-10.2); CHOL/HDL RATIO 3.7 (4.5-6.4); CREATININE 1.6 mg/dL (0.60-1.10); POTASSIUM 4.2 mmol/L (3.5-5.1); TOTAL PROTEIN 7.9 g/dL (5.8-8.1)
[2017-01-19 13:11] LABS: ANION GAP 13.2
== END 2017-01-19 11:48 | disposition home or self-care (01) ==
LOC: LAB 11:47
PROVIDERS: ATTEND General Practice
DX: N39.0 Urinary tract infection, site not specified (principal); I50.9 Heart failure, unspecified; E10.9 Type 1 diabetes mellitus without complications; I10 Essential (primary) hypertension; E03.9 Hypothyroidism, unspecified; E78.5 Hyperlipidemia, unspecified; M1A.9XX0 Chronic gout, unspecified, without tophus (tophi); Z79.899 Other long term (current) drug therapy
CPT/HCPCS: 36415; 80053; 80061; 81001; 83036; 83880; 85025

== ENCOUNTER 2017-03-18 11:02 | Outpatient (CLI) ==
[2017-03-18 13:47] LABS: BASOPHILS # (AUTO) 0.1 K/uL (0-0.2); BASOPHILS % (AUTO) 0.7 % (0.0-3.0); EOSINOPHILS # (AUTO) 0.2 K/ul (0.0-0.7); EOSINOPHILS % (AUTO) 2.5 % (0.0-7.0); HEMATOCRIT 42.2 % (42.0-52.0); HEMOGLOBIN 13.3 g/dl (14.0-18.0); IMMATURE GRANULOCYTE % (AUTO) 0.2 % (0.0-5.0); LYMPHOCYTES # (AUTO) 2.8 K/uL (0.60-3.4); LYMPHOCYTES % (AUTO) 34.2 (10.0-50.0); MEAN CORPUSCULAR HEMOGLOBIN 29.1 pg (27.0-31.0); MEAN CORPUSCULAR HGB CONC 31.5 (31.8-35.4); MEAN CORPUSCULAR VOLUME 92.3 fl (80.0-94.0); MONOCYTES # (AUTO) 0.8 K/uL (0.4-2.0); MONOCYTES % (AUTO) 9.6 (0-10); NEUTROPHILS # (AUTO) 4.3 K/ul (2.0-6.9); NEUTROPHILS % (AUTO) 52.8; PLATELET COUNT 197 10^3/uL (140-440); RED BLOOD COUNT 4.57 10^6/ul (4.70-6.10); WHITE BLOOD COUNT 8.11 K/ul (4.2-10.2)
[2017-03-18 13:48] LABS: BILIRUBIN,URINE Negative (NEGATIVE); KETONES,URINE Negative (NEGATIVE); LEUKOCYTE ESTERASE ,URINE 1+ (NEGATIVE); NITRITE,URINE Negative (NEGATIVE); PH,URINE 5.5 (5-9); PROTEIN,URINE Negative (NEGATIVE); URINE, BLOOD 1+ (NEGATIVE)
[2017-03-18 14:16] LABS: ADD URINE MICROSCOPIC YES
[2017-03-18 14:18] LABS: BACTERIA,URINE 3+ (NOT PRESENT)
[2017-03-18 14:23] LABS: ALBUMIN 3.7 g/dL (3.4-5.0); ALBUMIN/GLOBULIN RATIO 0.8; ANION GAP 16.7; BILIRUBIN,TOTAL 0.57 mg/dL (0.00-1.20); CALCIUM 9.9 mg/dL (8.2-10.2); CREATININE 2.56 mg/dL (0.60-1.10); POTASSIUM 3.7 mmol/L (3.5-5.1); TOTAL PROTEIN 8.3 g/dL (5.8-8.1)
[2017-03-18 14:24] LABS: BUN/CREATININE RATIO 39.06
[2017-03-18 18:34] VITALS: BMI 36.3
== END 2017-03-18 11:03 | disposition home or self-care (01) ==
LOC: LAB 11:02
PROVIDERS: ATTEND General Practice
DX: I50.9 Heart failure, unspecified (principal); E10.9 Type 1 diabetes mellitus without complications; E78.5 Hyperlipidemia, unspecified; I10 Essential (primary) hypertension; E03.9 Hypothyroidism, unspecified; Z79.899 Other long term (current) drug therapy
CPT/HCPCS: 36415; 80053; 81001; 83036; 84443; 85025; 87086; 87186

== ENCOUNTER 2017-03-18 17:53 | Inpatient (IN) | payer OTHER ==
[2017-03-18 18:34] VITALS: BMI 36.3
--- NOTE | 2017-03-18 20:57 | DI ---
EXAM: CHEST FRONTAL AND LATERAL VIEWS HISTORY: Shortness of breath. COMPARISON: 01/04/2017 FINDINGS: Heart size upper limit normal. Sternotomy wires are noted. There is evidence suggesting previous valvular repair, correlate with history. There is mild to moderate atherosclerotic diseas e. Right port catheter is stable ending over the superior vena cava. No acute infiltrates are seen. There is no consolidation, visible pleural fluid or pneumothorax. Bones reveal no acute fracture. IMPRESSION: No acute cardiopulmonary process.
[2017-03-18] MEDS ORDERED: PRAVACHOL PO SCH (21:00)
[2017-03-18] MEDS ORDERED: COMBIVENT RESPIMAT INHAL SPRAY IH PRN (21:37)
[2017-03-18] MEDS ORDERED: COLACE PO PRN (21:37)
[2017-03-18] MEDS ORDERED: BUMEX PO SCH (22:00)
[2017-03-18] MEDS ORDERED: NITROSTAT SL PRN (22:00)
[2017-03-18] MEDS ORDERED: PRAVACHOL ONE (22:10)
[2017-03-18] MEDS ORDERED: BUMEX ONE (22:10)
[2017-03-18] MEDS: HUMULIN N SUBCUT SCH (22:16)
[2017-03-18] MEDS: PRAVACHOL PO SCH (22:29)
[2017-03-18 22:38] LABS: BILIRUBIN,URINE Negative (NEGATIVE); KETONES,URINE Negative (NEGATIVE); LEUKOCYTE ESTERASE ,URINE 2+ (NEGATIVE); NITRITE,URINE Negative (NEGATIVE); PROTEIN,URINE Negative (NEGATIVE); URINE, BLOOD 2+ (NEGATIVE)
[2017-03-18 22:39] LABS: ADD URINE MICROSCOPIC YES
[2017-03-18 22:53] LABS: BACTERIA,URINE 1+ (NOT PRESENT)
[2017-03-18] MEDS: SODIUM CHLORIDE 1,000 ML IV SCH (23:01)
[2017-03-19] MEDS: SYNTHROID PO SCH (05:54)
[2017-03-19] MEDS ORDERED: NON-FORMULARY MEDICATION (Ferrous Sulfate [Ferrous Sulfate] 325 MG) PO SCH ×22 (09:00)
[2017-03-19] MEDS: BUMEX PO SCH ×2 (09:41→17:51)
[2017-03-19] MEDS: BETAPACE PO SCH ×2 (09:41→21:22)
[2017-03-19] MEDS: COZAAR PO SCH (09:42)
[2017-03-19] MEDS: FERROUS SULFATE PO SCH (09:42)
[2017-03-19] MEDS: HUMULIN N SUBCUT SCH ×2 (09:43→21:21)
[2017-03-19] MEDS: ZYLOPRIM PO SCH (09:43)
[2017-03-19] MEDS: SODIUM CHLORIDE 1,000 ML IV SCH ×2 (09:46→21:26)
[2017-03-19 12:54] LABS: BASOPHILS # (AUTO) 0.1 K/uL (0-0.2); BASOPHILS % (AUTO) 0.7 % (0.0-3.0); EOSINOPHILS # (AUTO) 0.2 K/ul (0.0-0.7); EOSINOPHILS % (AUTO) 2.3 % (0.0-7.0); HEMATOCRIT 40.6 % (42.0-52.0); HEMOGLOBIN 13.2 g/dl (14.0-18.0); IMMATURE GRANULOCYTE % (AUTO) 0.2 % (0.0-5.0); LYMPHOCYTES # (AUTO) 2.6 K/uL (0.60-3.4); LYMPHOCYTES % (AUTO) 31.5 (10.0-50.0); MEAN CORPUSCULAR HEMOGLOBIN 29.3 pg (27.0-31.0); MEAN CORPUSCULAR HGB CONC 32.5 (31.8-35.4); MONOCYTES # (AUTO) 0.7 K/uL (0.4-2.0); MONOCYTES % (AUTO) 8.3 (0-10); NEUTROPHILS # (AUTO) 4.6 K/ul (2.0-6.9); PLATELET COUNT 192 10^3/uL (140-440); RED BLOOD COUNT 4.51 10^6/ul (4.70-6.10); WHITE BLOOD COUNT 8.09 K/ul (4.2-10.2)
[2017-03-19 13:18] LABS: ALBUMIN 3.2 g/dL (3.4-5.0); ALBUMIN/GLOBULIN RATIO 0.74; ANION GAP 15.5; BILIRUBIN,TOTAL 0.66 mg/dL (0.00-1.20); BUN/CREATININE RATIO 45.16; CALCIUM 9.4 mg/dL (8.2-10.2); CREATININE 1.86 mg/dL (0.60-1.10); POTASSIUM 3.5 mmol/L (3.5-5.1); TOTAL PROTEIN 7.5 g/dL (5.8-8.1)
[2017-03-19 15:36] LABS: BILIRUBIN,URINE Negative (NEGATIVE); KETONES,URINE Negative (NEGATIVE); LEUKOCYTE ESTERASE ,URINE 2+ (NEGATIVE); NITRITE,URINE Negative (NEGATIVE); PH,URINE 6.5 (5-9); PROTEIN,URINE Negative (NEGATIVE); URINE, BLOOD Trace-intact (NEGATIVE)
[2017-03-19 15:39] LABS: ADD URINE MICROSCOPIC YES; BACTERIA,URINE TRACE (NOT PRESENT)
[2017-03-19] MEDS: ASPIRIN EC PO SCH (17:50)
[2017-03-19] MEDS: COUMADIN PO SCH (17:52)
[2017-03-19] MEDS ORDERED: PRAVACHOL PO SCH (21:00)
[2017-03-19] MEDS ORDERED: HUMULIN N SUBCUT SCH (21:00)
[2017-03-19] MEDS: PRAVACHOL PO SCH (21:23)
[2017-03-20 05:18] LABS: BASOPHILS # (AUTO) 0.1 K/uL (0-0.2); BASOPHILS % (AUTO) 0.8 % (0.0-3.0); EOSINOPHILS # (AUTO) 0.2 K/ul (0.0-0.7); EOSINOPHILS % (AUTO) 2.9 % (0.0-7.0); HEMOGLOBIN 12.2 g/dl (14.0-18.0); IMMATURE GRANULOCYTE % (AUTO) 0.4 % (0.0-5.0); LYMPHOCYTES # (AUTO) 2.9 K/uL (0.60-3.4); LYMPHOCYTES % (AUTO) 34.9 (10.0-50.0); MEAN CORPUSCULAR HGB CONC 32.1 (31.8-35.4); MEAN CORPUSCULAR VOLUME 90.3 fl (80.0-94.0); MONOCYTES # (AUTO) 0.9 K/uL (0.4-2.0); MONOCYTES % (AUTO) 10.2 (0-10); NEUTROPHILS # (AUTO) 4.2 K/ul (2.0-6.9); NEUTROPHILS % (AUTO) 50.8; PLATELET COUNT 170 10^3/uL (140-440); RED BLOOD COUNT 4.21 10^6/ul (4.70-6.10)
[2017-03-20 05:48] LABS: ALBUMIN 3.1 g/dL (3.4-5.0); ALBUMIN/GLOBULIN RATIO 0.79; ANION GAP 15.4; BILIRUBIN,TOTAL 0.64 mg/dL (0.00-1.20); BUN/CREATININE RATIO 41.53; CREATININE 1.95 mg/dL (0.60-1.10); POTASSIUM 3.4 mmol/L (3.5-5.1)
[2017-03-20] MEDS: SYNTHROID PO SCH (05:54)
[2017-03-20] MEDS: BUMEX PO SCH ×2 (05:54→17:30)
[2017-03-20] MEDS: SODIUM CHLORIDE 1,000 ML IV SCH ×2 (09:02→22:47)
[2017-03-20] MEDS: HUMULIN N SUBCUT SCH ×2 (10:59→21:11)
[2017-03-20] MEDS: BETAPACE PO SCH ×2 (11:00→21:11)
[2017-03-20] MEDS: ZYLOPRIM PO SCH (11:01)
[2017-03-20] MEDS: COZAAR PO SCH (11:01)
[2017-03-20] MEDS: FERROUS SULFATE PO SCH (11:01)
[2017-03-20] MEDS: ASPIRIN EC PO SCH (17:29)
[2017-03-20] MEDS: COUMADIN PO SCH (17:30)
[2017-03-20 20:07] LABS: BILIRUBIN,URINE Negative (NEGATIVE); KETONES,URINE Negative (NEGATIVE); LEUKOCYTE ESTERASE ,URINE 2+ (NEGATIVE); NITRITE,URINE Negative (NEGATIVE); PROTEIN,URINE Negative (NEGATIVE); URINE, BLOOD 2+ (NEGATIVE)
[2017-03-20 20:27] LABS: ADD URINE MICROSCOPIC YES; BACTERIA,URINE 2+ (NOT PRESENT)
[2017-03-20] MEDS: PRAVACHOL PO SCH (21:10)
[2017-03-20 21:53] VITALS: BP 127/78; TEMP 98.4
[2017-03-21] MEDS ORDERED: METOLAZONE 5 MG PO SCH (07:00)
[2017-03-21] MEDS ORDERED: ZAROXOLYN PO SCH (09:00)
--- NOTE | 2017-03-24 13:49 | HP ---
CHIEF COMPLAINT: Some burning on urination, abnormal urinalysis, markedly elevated BUN of 100 and significant decrease on E GFR. HISTORY OF PRESENT ILLNESS: The patient came to the lab for routine hematology, plus chemistry and urinalysis for follow up at the office. I was notified by the lab because of the markedly elevated BUN now 100 and the markedly decreased EGFR at 30. The urinalysis also was abnormal. I did call the patient and the patient did tell me that he does have some slight burning on urination, although this is much better. He denied any fever or chills. I advised admission for this patient because of his significant comorbidities. He could very well have a pyelonephritis or a beginning of one. This patient was treated with Doxycycline for urinary tract infection. I don't think Doxycycline will be affected, more so that there was no culture. He was told that that is the only medication he could take since he had allergies consisting of Keflex, Cipro, Potassium chloride. PAST PERSONAL HISTORY: Surgical, cataract extraction, CABG times two 2011. Also had cardiac catheterization with five coronary artery stents deployed. Umbilical hernia repair, penile implant, left TKR 2008, colonoscopy by Dr. Braxton. Urological examination by Dr. Mera. Medical problems, lymphoma, given chemotherapy in 2004, gouty arthritis, diabetes mellitus on Insulin, history of congestive heart failure, cardiac arrhythmia, hypothyroidism replaced , hypertension. FAMILY HISTORY: Father had emphysema, mother had bone malignancy. SOCIAL HISTORY: The patient is for the second time. His first of a malignancy. He never did smoke, but exposed to second hand. No alcoholic beverages. He had been retired for some time. MEDICATIONS: Prior to this admission Aspirin 81 mg daily Zyloprim 100 mg daily Colace 100 mg twice a day Bumex 1 mg twice a day Combivent Respimat one inhalation every 6 hours prn Sotalol 40 mg twice a day Nitroglycerin 0.4 mg prn sublingually, maximum of three and go to the emergency room Warfarin sodium 5 mg tablet daily Novolin N 40 units subcutaneously daily Novolin N 20 units subcutaneously at bedtime Vitamin D 50,000 IU weekly times 12 weeks Levothyroxine 88 mcg daily Pravastatin 40 mg daily Ferrous sulfate 325 mg daily Losartan 25 mg daily Metolazone 5 mg tablet three times a week. Tuesday, Tuesday and Tuesday. Mucinex 1200 mg every 12 hours ALLERGIES: Cephalexin, potassium chloride and Cipro. REVIEW OF SYSTEMS: CONSTITUTIONAL: The patient has no fever and no chills and no fatigue. 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 VISUAL: Denies any blurred vision, double vision or transient loss of vision. AUDITORY: Hearing is decreased, but still adequate. No tinnitus, no dizziness, no pain or drainage. RESPIRATORY: The patient has no significant cough and no history of hemoptysis. He does not have any shortness of breath at this time while at rest. CARDIOVASCULAR: Denies any chest pain or chest tightness. The patient is known to have a significant coronary artery disease and was operated previously and also five stents were deployed. The patient had episodes of congestive heart failure. GASTROINTESTINAL: The patient's appetite is good and he told me that he is drinking juice. I told he could not drink any of those juices, orange juice or any kind of juice since juice does have significant amount of sugar. He can drink water or tea without sugar. GENITOURINARY: The patient has some slight burning on urination. He claims that this is much better. His urinalysis earlier today was markedly abnormal and we are awaiting culture. He told me that he was treated for urinary tract infection with Doxycycline about a month ago for 10 days. I do not know if there was any culture and if that mediation was based upon culture. MUSCULOSKELETAL: The patient does have pain in the joints upon movement. The patient has difficulty getting up from sitting because of the pain. He does have movement of all extremities. INTEGUMENT: No rash and no pruritus. ENDOCRINE: The patient has type I Diabetes mellitus. He is on Insulin managed by the digital media coordinator. He is receiving Novolin twice a day. HEMATOLOGIC: No history of prolonged bleeding. PSYCHIATRIC: Affect is normal. PHYSICAL EXAMINATION: GENERAL: We have a 76 year old black male admitted to the hospital because of markedly elevated BUN, significant decrease in GFR, markedly abnormal urinalysis with some dysuria. The patient does not appear to be in any distress at this time. VITAL SIGNS: Temperature 98.5, pulse 67, blood pressure 152/70, respiratory rate 18, oxygen saturation 96 on room air. 5'9", 246 pounds, BMI 36.3. HEAD: Unremarkable. FACE: Symmetrical and equal with no facial weakness and no remarkable tenderness to palpation under pressure in the frontal and maxillary sinus areas. EYES: Pupils equal/reactive to light. Conjunctivae not pale. Sclerae not icteric. MOUTH: Unremarkable. THROAT: No inflammation, tumors or exudate. NECK: No masses. No bruit. No tenderness. No rigidity. CHEST: Essentially symmetrical and equal with good expansion. LUNGS: Breath sounds are heard in both sides, slightly diminished, but no rales. HEART: Audible with some occasional irregularity. No murmurs. ABDOMEN: Protuberant, soft with no remarkable tenderness. No guarding. Bowel sounds are active. No masses palpable. LOWER EXTREMITIES: Essentially symmetrical and equal with no tenderness in the calf muscles. No edema. Pedal pulses are absent. UPPER EXTREMITIES: Symmetrical and equal. ASSESSMENT: 1. URINARY TRACT INFECTION 2. DEHYDRATION 3. PRERENAL AZOTEMIA, SUPERIMPOSED AND CHRONIC RENAL DISEASE 4. DIABETES MELLITUS ON INSULIN 5. CORONARY ARTERY DISEASE, POST CABG, POST STENT 6. HYPERTENSION 7. HISTORY OF CONGESTIVE HEART FAILURE 8. HISTORY OF ANEMIA 9. HISTORY OF GOUTY ARTHRITIS 10. CHRONIC OBSTRUCTIVE PULMONARY DISEASE 11. ELEVATED BMI 36.3 MTDD
--- NOTE | 2017-03-24 14:12 | DS ---
PATIENT IDENTIFICATION: 76 year old black male admitted to the hospital because of some dysuria with markedly abnormal urine with markedly increased BUN and decreased GFR. HOSPITAL COURSE: VITAL SIGNS: On admission were essentially normal with temperature 98.5, pulse 67, blood pressure 152/70, respiratory rate 18, oxygen saturation 96. GENERAL: The patient is alert and denies any significant problems. He claims that he feels good. He had been given and extra water pill to be taken three times a day, Tuesday, Tuesday and Tuesday, Metolazone 5 mg. LUNGS: The lungs had some diminished breath sounds, but clear. HEART: Audible and slightly irregular. ABDOMEN: Unremarkable. The patient is given IV fluids consisting of D5 and water saline to run at 83 cc per minute to see what his BUN, creatinine and GFR by morning. Repeat urinalysis on 03/19/2017 showed a improvement. The leukocyte esterase is still 2+, blood trace, RBC 2-5, WBC 2-5 and bacteria is trace. No antibiotics had been given at this juncture. The patient's BNP was slightly elevated at 143 before admission and on 03/19/2017 did rise to 168. The patient, however, does not have any symptoms of dyspnea or tachypnea. The sugar was 174 on 03/19/17 and 251 on 03/20/17. This patient was advised to never drink any juice or any kind, concentrated or otherwise. The patient's urine culture did show gram negative rods, but no ID and no BEE at this point. I choose not to give him any medication because of his allergies. He is allergic to Cipro, as well as Keflex. This patient has e.coli and ESBL positive and Ertapenem maybe utilized. Read as negative. The patient will be given medication depending upon the sensitivity. Medication dose will be discussed with the Doughnut Dough Mixer of the hospital. The patient at the time of discharge was alert, ambulatory without any dysuria. He denies any nausea or chest pain or abdominal pain. His lungs were clear to auscultation, although diminished. The heart audible and slightly irregular. The abdomen was nontender. Lower extremities with no edema of the legs or ankles. The pedal pulses are still absent. I told him that I will another urine sample before discharge. The culture also will be requested. I would get in touch with him tomorrow when I get the results of the BEE and ID. Urinalysis just before discharge today showed 2+ blood again, leukocyte esterase is 2+, no red cells, WBC 50-100, bacteria 2+. I told him how to collect a urine. The patient's BUN has decreased and the E GFR has increased, down from 81 from 100 and the E GFR is up to 41 and 43 from 30. I again advised him never to drink any juices of any kind. If he wants an orange just that he should buy an orange. I would touch base with him tomorrow as soon as I get the results of the culture. FINAL DIAGNOSES: 1. ABNORMAL URINALYSIS, ASYMPTOMATIC 2. DEHYDRATION, IMPROVED 3. DIABETES MELLITUS 4. THE REST OF THE CHRONIC DIAGNOSIS ARE THE SAME. IVYD
--- NOTE | 2017-03-24 14:17 | PN ---
DATE OF VISIT: 03/19/17 The patient, today, is alert, oriented times four and cheerful. He is not dyspneic, nor tachypneic. He claims that there is a slight pain on urination. VITAL SIGNS: At 5:31 p.m. showed a temperature of 97.8, pulse 53, blood pressure 104/49, respiratory rate 16, oxygen saturation 94 at room air. LUNGS: Clear. HEART: Audible and slightly irregular. ABDOMEN: No remarkable tenderness. LEGS: No tenderness in the calf muscles. We are awaiting culture of the urine, as well as the ID and BEE before I would give him any antibiotics. MTDD
[2017-03-25] MEDS ORDERED: DRISDOL PO SCH (09:00)
== END 2017-03-20 22:50 | disposition home or self-care (01) | DRG 696 ==
LOC: MEDSURG B 17:53
PROVIDERS: ADMIT General Practice; ATTEND General Practice
DX: R82.90 Unspecified abnormal findings in urine (principal); R30.0 Dysuria; E86.0 Dehydration; E10.9 Type 1 diabetes mellitus without complications; I50.9 Heart failure, unspecified; I10 Essential (primary) hypertension; E78.5 Hyperlipidemia, unspecified; E03.9 Hypothyroidism, unspecified; Z79.01 Long term (current) use of anticoagulants; Z79.4 Long term (current) use of insulin; Z79.899 Other long term (current) drug therapy
CPT/HCPCS: 36415; 80053; 81001; 82962; 83036; 83880; 84145; 84443; 85025; 87040; 87086; 87186

== ENCOUNTER 2017-03-25 12:56 | Outpatient (CLI) ==
[2017-03-25 13:37] LABS: PROTHROMBIN TIME 23.8 SEC (9.3-11.0)
[2017-03-25 13:43] LABS: ALBUMIN 3.5 g/dL (3.4-5.0); ANION GAP 18.8; BUN/CREATININE RATIO 37.1; CREATININE 2.56 mg/dL (0.60-1.10); PHOSPHORUS 4.5 mg/dL (2.3-3.7); POTASSIUM 3.8 mmol/L (3.5-5.1)
== END 2017-03-25 12:57 | disposition home or self-care (01) ==
LOC: LAB 12:56
PROVIDERS: ATTEND General Practice
DX: Z51.81 Encounter for therapeutic drug level monitoring (principal); Z79.01 Long term (current) use of anticoagulants; I50.9 Heart failure, unspecified; E10.9 Type 1 diabetes mellitus without complications; E03.9 Hypothyroidism, unspecified; I10 Essential (primary) hypertension
CPT/HCPCS: 36415; 80069; 85610

== ENCOUNTER 2018-01-03 10:53 | Outpatient (CLI) | payer OTHER | END 2018-01-03 10:54 | disposition home or self-care (01) | LOC: FCC-LAB 10:53 | PROVIDERS: ATTEND General Practice | DX: E78.5 Hyperlipidemia, unspecified (principal); E10.9 Type 1 diabetes mellitus without complications; E03.9 Hypothyroidism, unspecified; I10 Essential (primary) hypertension; I50.9 Heart failure, unspecified; Z12.5 Encounter for screening for malignant neoplasm of prostate; Z79.899 Other long term (current) drug therapy | CPT/HCPCS: 36415; 80053; 80061; 81001; 83036; 85025 ==

== ENCOUNTER 2018-03-31 14:41 | Outpatient (CLI) | payer OTHER | END 2018-03-31 14:42 | disposition home or self-care (01) | LOC: FCC-LAB 14:41 | PROVIDERS: ATTEND General Practice | DX: I50.9 Heart failure, unspecified (principal); E10.9 Type 1 diabetes mellitus without complications; I10 Essential (primary) hypertension; E78.5 Hyperlipidemia, unspecified; E03.9 Hypothyroidism, unspecified; Z79.899 Other long term (current) drug therapy | CPT/HCPCS: 36415; 80053; 80061; 83036; 84443; 85025 ==

== ENCOUNTER 2018-07-26 09:15 | Outpatient (CLI) | payer OTHER | END 2018-07-26 09:16 | disposition home or self-care (01) | LOC: RHC-LAB 09:15 | PROVIDERS: ATTEND General Practice | DX: E78.5 Hyperlipidemia, unspecified (principal); E10.9 Type 1 diabetes mellitus without complications; Z79.4 Long term (current) use of insulin; Z79.899 Other long term (current) drug therapy | CPT/HCPCS: 36415; 80053; 80061; 81001; 83036; 85025 ==

== ENCOUNTER 2018-10-27 08:00 | Outpatient (CLI) | payer OTHER | END 2018-10-27 08:01 | disposition home or self-care (01) | LOC: RHC-LAB 08:00 | PROVIDERS: ATTEND General Practice | DX: E78.5 Hyperlipidemia, unspecified (principal); E03.9 Hypothyroidism, unspecified; E10.9 Type 1 diabetes mellitus without complications; Z79.899 Other long term (current) drug therapy | CPT/HCPCS: 36415; 80053; 80061; 81001; 83036; 85025 ==

== ENCOUNTER 2018-12-06 12:09 | Outpatient (CLI) | payer OTHER | END 2018-12-06 12:10 | disposition home or self-care (01) | LOC: RHC-LAB 12:09 | PROVIDERS: ATTEND General Practice | DX: I50.9 Heart failure, unspecified (principal); R53.83 Other fatigue; E10.9 Type 1 diabetes mellitus without complications; I10 Essential (primary) hypertension; Z79.899 Other long term (current) drug therapy | CPT/HCPCS: 36415; 80053; 83880; 85025; 86710; 87502; 87651 ==

== ENCOUNTER 2018-12-13 10:42 | Outpatient (CLI) ==
--- NOTE | 2018-12-13 13:58 | DI ---
Exam: Chest two-view. HISTORY: Cough. Comparison: 03/18/2017. Findings: Two views of the chest are submitted. These demonstrate moderately expanded lungs with di scoid opacity in the right lung base. There is no pneumothorax or edema. The cardiac silhouette is at the upper limit of normal size. The thoracic aorta is partially calcified. A Port-A-Cath is unch anged. Sternal wires appear stable. There are degenerative findings in the spine. Multiple surgica l clips are noted the upper abdomen. Impressions: Mild discoid atelectasis in the right lung base. No edema or pneumothorax. Atherosclerosis and prior sternotomy. Stable Port-A-Cath.
== END 2018-12-13 10:43 | disposition home or self-care (01) ==
LOC: RAD 10:42
PROVIDERS: ATTEND General Practice
DX: R05 Cough (principal)

== ENCOUNTER 2018-12-29 13:15 | Outpatient (CLI) | END 2018-12-29 13:16 | disposition home or self-care (01) | LOC: RHC-LAB 13:15 | PROVIDERS: ATTEND General Practice | DX: E55.9 Vitamin D deficiency, unspecified (principal) | CPT/HCPCS: 36415; 82306 ==

== ENCOUNTER 2019-02-20 07:58 | Outpatient (CLI) | payer OTHER | END 2019-02-20 07:59 | disposition home or self-care (01) | LOC: RHC-LAB 07:58 | PROVIDERS: ATTEND General Practice | DX: E78.5 Hyperlipidemia, unspecified (principal); E03.9 Hypothyroidism, unspecified; E10.9 Type 1 diabetes mellitus without complications; I10 Essential (primary) hypertension; Z79.899 Other long term (current) drug therapy | CPT/HCPCS: 36415; 80053; 80061; 81001; 83036; 85025 ==

== ENCOUNTER 2019-03-20 07:58 | Outpatient (CLI) | END 2019-03-20 07:59 | disposition home or self-care (01) | LOC: RHC-LAB 07:58 | PROVIDERS: ATTEND General Practice | DX: E11.8 Type 2 diabetes mellitus with unspecified complications (principal) | CPT/HCPCS: 36415; 80053; 83036 ==